=== PATIENT | female | born 1960 | race Caucasian/White ===

== ENCOUNTER 2017-06-05 23:17 | Emergency (ER) | payer MEDICARE, OTHER ==
[~2017-06-05] VITALS: Ht 162.6 cm; Wt 110.0 kg
[2017-06-05 23:25] VITALS: BP 165/80; PULSE 67; RESP 18; TEMP 97.9; O2SAT 99
[2017-06-06] MEDS ORDERED: ENAL5TAB PO (00:05)
--- NOTE | 2017-06-06 00:06 | PD ---
HPI Chief Complaint: Fever Time Seen by Provider: 23:32 Travel History International Travel<30 days: No Contact w/Intl Traveler<30days: No Traveled to known affect area: No History of Present Illness HPI Patient is a 56-year-old female presents emergency department for evaluation of an episode of tremors and elevated blood pressure. 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 The patient states she was seen here the other day and had a flu workup which was negative, she states she was having some night sweats the night and then her daughter interjects that she started shaking all over but conscious and did not resemble seizure. During the episode of shaking her daughter took her blood pressure and found it elevated and decided to call 911. On arrival to the emergency department the patient states her symptoms have completely resolved, she is visiting from [place] and does not have her enalapril with her. She denies any chest pain shortness of breath abdominal pain, focalized weakness, headache, dizziness. PFSH Past Medical History Hypertension: Yes ?: Not Past Surgical History Appendectomy: Yes Cholecystectomy: Yes Social History Alcohol Use: No Tobacco Use: Yes (06/04 PPD) Allergies-Medications (Allergen,Severity, Reaction): Coded Allergies: No Known Allergies (Unverified , 06/05/17) Reported Meds & Prescriptions Reported Meds & Active Scripts Active Enalapril (Enalapril Maleate) 5 Mg Tab 5 Mg PO DAILY Review of Systems Except as stated in HPI: all other systems reviewed are Neg Physical Exam Narrative GENERAL: Well developed well-nourished, obese in no obvious distress. SKIN: Focused skin assessment warm/dry. HEAD: Atraumatic. Normocephalic. EYES: Pupils equal and round. No scleral icterus. No injection or drainage. ENT: No nasal bleeding or discharge. Mucous membranes pink and moist. NECK: Trachea midline. No JVD. CARDIOVASCULAR: Regular rate and rhythm. No murmur appreciated. RESPIRATORY: No accessory muscle use. Clear to auscultation. Breath sounds equal bilaterally. GASTROINTESTINAL: Abdomen soft, non-tender, nondistended. Hepatic and splenic margins not palpable. MUSCULOSKELETAL: No obvious deformities. No clubbing. No cyanosis. No edema. NEUROLOGICAL: Awake and alert. Cranial nerves II through XII are grossly intact and nonfocal, 5 out of 5 strength in all 4 extremity's. PSYCHIATRIC: Appropriate mood and affect; insight and judgment normal. Data Data Last Documented VS Vital Signs Date Time Temp Pulse Resp B/P (MAP) Pulse Ox O2 Delivery O2 Flow Rate FiO2 06/05/17 23:25 97.9 67 18 165/80 (108) 99 Orders Orders Ed Discharge Order (06/06/17 00:06) MDM Medical Decision Making Medical Screen Exam Complete: Yes Emergency Medical Condition: Yes Differential Diagnosis Panic attack, anxiety, elevated blood pressure reading, hypertensive emergency unlikely, Narrative Course Patient roomed in emergency department, she appears well and in no obvious distress, symptoms are resolved on arrival. She states her blood pressure was in the 200 systolic range prior to arrival but here is much better controlled. She's not having any symptoms to suggest end organ failure and feels well now. At this time there is no indication further workup, I discussed return to ED criteria. I am happy to refill a months worth of her enalapril while she is visiting. Diagnosis Primary Impression: Elevated blood pressure reading Additional Impression: Shaking Med/Other Pt SpecificInfo: Prescription(s) given Scripts Enalapril (Enalapril) 5 Mg Tab 5 MG PO DAILY, #30 TAB 0 Refills Prov: Pradeep Corrae MD 06/06/17 Disposition: 01 DISCHARGE HOME Condition: Stable Pradeep Correa MD Jun 06, 2017 00:06
== END 2017-06-06 00:19 | disposition home or self-care (01) ==
LOC: NEPD 23:17
DX: I10 Essential (primary) hypertension (principal); R25.9 Unspecified abnormal involuntary movements; F17.200 Nicotine dependence, unspecified, uncomplicated
CPT/HCPCS: 99283